=== PATIENT | female | born 1985 | race African-American/Black ===

== ENCOUNTER 2018-09-23 17:18 | Inpatient (IN) | payer SELFPAY ==
[~2018-09-23] VITALS: Ht 160 cm; Wt 68.5 kg
[2018-09-23] MEDS: D5 1/2NS 1,000 ML IV SCH (00:45)
[2018-09-23 17:35] VITALS: BP 122/84
--- NOTE | 2018-09-23 17:35 | NUR ---
ED Nurse Note: walked in to ED due to RUQ abdomen for 1 day. denies n/v/d. AAO x 4. respirations even and non-labored noted. no uriary problem. will wait for the further order.
--- NOTE | 2018-09-23 17:42 | Emergency Room Report ---
History of Present Illness General Chief Complaint: Abdominal Pain Source: Patient Present Illness HPI 33-year-old female history of appendectomy presents with right middle quadrant pain that started 1 day ago, reports it to be achy in nature, aggravated with movement alleviated with rest, no nausea no vomiting, no diarrhea, no vaginal discharge, patient denies any fever/chills, she states the pain has been constant with exacerbations. She denies any dysuria. Patient presents for evaluation Allergies: Coded Allergies: No Known Allergies (Unverified , 09/23/18) Patient History Past Medical History: see triage record Last Menstrual Period: today Now: No Reviewed Nursing Documentation: PMH: Agreed; PSxH: Agreed Nursing Documentation-PMH Past Medical History: No Stated History Review of Systems Constitutional: Denies: chills, fever Eye: Denies: blurred vision, double vision ENT: Denies: throat pain, nasal discharge Respiratory: Denies: cough, shortness of breath Cardiovascular: Denies: chest pain, palpitations Gastrointestinal: Reports: abdominal pain; Denies: diarrhea, nausea, vomiting Genitourinary: Denies: dysuria, pain Musculoskeletal: Denies: back pain, muscle pain Skin: Denies: rash, lesions Neurological: Denies: headache, focal weakness Hematologic/Lymphatic: Denies: easy bleeding, easy bruising All Other Systems: negative except mentioned in HPI Physical Exam Vital Signs Date Time Temp Pulse Resp B/P (MAP) Pulse Ox O2 Delivery O2 Flow Rate FiO2 09/23/18 17:22 98.1 81 18 122/84 (97) 98 Room Air Sp02 EP Interpretation: reviewed, normal General Appearance: well appearing, no apparent distress, alert Head: normocephalic, atraumatic Eyes: bilateral eye PERRL, bilateral eye EOMI ENT: uvula midline, moist mucus membranes Neck: supple, thyroid normal, supple/symm/no masses Respiratory: lungs clear, no respiratory distress, no retraction, no accessory muscle use Cardiovascular #1: normal peripheral pulses, regular rate, rhythm, no edema, no gallop, no murmur Gastrointestinal: soft, no guarding, no rebound, tenderness - Right middle quadrant, tender to palpation Musculoskeletal: normal inspection Neurologic: alert, oriented x3 Psychiatric: mood/affect normal Skin: no rash, warm/dry Medical Decision Making Diagnostic Impression: Primary Impression: Diverticulitis large intestine ER Course 33-year-old female presents with abdominal pain, differential includes SBO, stump appendicitis, diverticulitis, patient with normal labs, patient found to have a microperforation with complicated diverticulitis, patient will be admitted to Dr. Sanders. Patient repeat abdominal exam soft, nontender, patient is currently n.p.o. we will admit patient Laboratory Tests Test 09/23/18 17:30 09/23/18 17:50 Urine Color Yellow Urine Appearance Slightly cloudy Urine pH 5 (4.5-8.0) Urine Specific [place] 1.020 (1.005-1.035) Urine Protein Negative (NEGATIVE) Urine Glucose (UA) Negative (NEGATIVE) Urine Ketones Negative (NEGATIVE) Urine Blood 4+ (NEGATIVE) H Urine Nitrite Negative (NEGATIVE) Urine Bilirubin Negative (NEGATIVE) Urine Urobilinogen 1 MG/DL (0.0-1.0) H Urine Leukocyte Esterase 1+ (NEGATIVE) H Urine RBC 0-2 /HPF (0 - 2) Urine WBC 2-4 /HPF (0 - 2) Urine Squamous Epithelial Cells Moderate /LPF (NONE/OCC) H Urine Bacteria Moderate /HPF (NONE) H Urine HCG, Qualitative Negative (NEGATIVE) White Blood Count 10.7 K/UL (4.8-10.8) Red Blood Count 3.56 M/UL (4.20-5.40) L Hemoglobin 10.9 G/DL (12.0-16.0) L Hematocrit 32.4 % (37.0-47.0) L Mean Corpuscular Volume 91 FL (80-99) Mean Corpuscular Hemoglobin 30.6 PG (27.0-31.0) Mean Corpuscular Hemoglobin Concent 33.6 G/DL (32.0-36.0) Red Cell Distribution Width 10.5 % (11.6-14.8) L Platelet Count 300 K/UL (150-450) Mean Platelet Volume 5.3 FL (6.5-10.1) L Neutrophils (%) (Auto) 81.3 % (45.0-75.0) H Lymphocytes (%) (Auto) 9.0 % (20.0-45.0) L Monocytes (%) (Auto) 6.8 % (1.0-10.0) Eosinophils (%) (Auto) 2.5 % (0.0-3.0) Basophils (%) (Auto) 0.5 % (0.0-2.0) Sodium Level 142 MMOL/L (136-145) Potassium Level 3.1 MMOL/L (3.5-5.1) L Chloride Level 105 MMOL/L (98-107) Carbon Dioxide Level 27 MMOL/L (21-32) Anion Gap 10 mmol/L (5-15) Blood Urea Nitrogen 11 mg/dL (7-18) Creatinine 0.8 MG/DL (0.55-1.30) Estimate Glomerular Filtration Rate > 60 mL/min (>60) Glucose Level 115 MG/DL (74-106) H Calcium Level 8.8 MG/DL (8.5-10.1) Total Bilirubin 0.2 MG/DL (0.2-1.0) Aspartate Amino Transferase (AST) 11 U/L (15-37) L Alanine Aminotransferase (ALT) 11 U/L (12-78) L Alkaline Phosphatase 62 U/L (46-116) Total Protein 7.1 G/DL (6.4-8.2) Albumin 2.7 G/DL (3.4-5.0) L Globulin 4.4 g/dL Albumin/Globulin Ratio 0.6 (1.0-2.7) L Lipase 176 U/L (73-393) CT/MRI/US Diagnostic Results CT/MRI/US Diagnostic Results : Imaging Test Ordered: CT abdomen and Pelvis Impression CT ABDOMEN & PELVIS With Contrast: Inflammatory change surrounding the cecum is of indeterminate clinical significance and may be related to terminal ileitis, cecitis, diverticulitis, or stumpitis. The normal appendix is not identified. Tiny locule of gas anterior to the cecum (axial image 41) is nonspecific and may be extraluminal. Trace nonspecific pelvic free fluid. No free air or loculated fluid collection. Diastases of the rectus musculature. Small fat-containing periumbilical hernia. Spleen, pancreas, gallbladder, liver, and kidneys are unremarkable. Thickening of the underdistended urinary bladder. Last Vital Signs Date Time Temp Pulse Resp B/P (MAP) Pulse Ox O2 Delivery O2 Flow Rate FiO2 09/23/18 17:35 81 18 Room Air 09/23/18 17:35 98.1 122/84 98 Disposition: ADMITTED INPATIENT Condition: Stable Scripts No Active Prescriptions or Reported Meds Nigel Freedman M.D. Sep 23, 2018 17:42
[2018-09-23 17:45] LABS: APPEARANCE,URINE SLIGHTLY CLOUDY; BILIRUBIN, URINE NEGATIVE (NEGATIVE); GLUCOSE, URINE (UA) NEGATIVE (NEGATIVE); KETONES,URINE NEGATIVE (NEGATIVE); LEUKOCYTE ESTERASE ,URINE 1+ (NEGATIVE); NITRITE,URINE NEGATIVE (NEGATIVE); PH,URINE 5 (4.5-8.0); PROTEIN,URINE NEGATIVE (NEGATIVE); UROBILINOGEN,URINE 1 MG/DL (0.0-1.0)
[2018-09-23] MEDS ORDERED: Acetaminophen 500mg (ES) tab ORAL ONE (17:45)
[2018-09-23] MEDS ORDERED: Isovue-300 100ml vial INJ PRN (17:45)
[2018-09-23 17:47] LABS: COLOR,URINE YELLOW
[2018-09-23 18:02] LABS: BASOPHILS % (AUTO) 0.5 % (0.0-2.0); EOSINOPHILS % (AUTO) 2.5 % (0.0-3.0); HEMATOCRIT 32.4 % (37.0-47.0); HEMOGLOBIN 10.9 G/DL (12.0-16.0); MEAN CORPUSCULAR VOLUME 91 FL (80-99); MONOCYTES % (AUTO) 6.8 % (1.0-10.0); NEUTROPHILS % (AUTO) 81.3 % (45.0-75.0); PLATELET COUNT 300 K/UL (150-450); RED BLOOD COUNT 3.56 M/UL (4.20-5.40); RED CELL DISTRIBUTION WIDTH 10.5 % (11.6-14.8); WHITE BLOOD COUNT 10.7 K/UL (4.8-10.8)
[2018-09-23 18:15] LABS: ANION GAP 10 mmol/L (5-15); BLOOD UREA NITROGEN 11 mg/dL (7-18); CALCIUM 8.8 MG/DL (8.5-10.1); CARBON DIOXIDE 27 MMOL/L (21-32); CHLORIDE 105 MMOL/L (98-107); CREATININE 0.8 MG/DL (0.55-1.30); POTASSIUM 3.1 MMOL/L (3.5-5.1); SODIUM 142 MMOL/L (136-145)
[2018-09-23 18:20] LABS: ALANINE AMINOTRANSFERASE 11 U/L (12-78); ALBUMIN 2.7 G/DL (3.4-5.0); ALBUMIN/GLOBULIN RATIO 0.6 (1.0-2.7); ALKALINE PHOSPHATASE 62 U/L (46-116); ASPARTATE AMINO TRANSFERASE 11 U/L (15-37); BILIRUBIN,TOTAL 0.2 MG/DL (0.2-1.0)
[2018-09-23] MEDS ORDERED: cefTRIAXone 1 GM in NS 55 ML IVPB ONE (18:30)
--- NOTE | 2018-09-23 18:53 | NUR ---
ED Nurse Note: pt refused CT scan. Dr. Norman notified.
--- NOTE | 2018-09-23 19:12 | NUR ---
HAND-OFF: Report given to SONALI Nath.
--- NOTE | 2018-09-23 19:29 | NUR ---
ER Nurse Note: All meds administered. ERMD aware of pt refusal of CT; explained the procedure and reasons for CT and PT agreed for CT. Radiology contacted and aware. Pt a&ox4, VSS, no signs of distress. All safety measures met; will continue to montior.
[2018-09-23 19:31] VITALS: BP 126/82
--- NOTE | 2018-09-23 20:20 | NUR ---
ER Nurse Note: CT taken; awaiting results. Pt calm, cooperative. Pt has questions regarding insurance; registration informed about pt concerns and is aware. All safety measures met; will continue to monitor.
[2018-09-23] MEDS ORDERED: Piperacillin/Tazobactam 3.375 GM in NS 110 ML IVPB ONE (21:00)
[2018-09-23 22:50] VITALS: BP 128/78
--- NOTE | 2018-09-23 22:50 | NUR ---
ER Nurse Note: Report given to SONALI Otero in [place] for continutiy of care at 2225. No transportation aviliable. Pt a&ox4, VSS, no signs of distress. Pt denies pain. SLIV RT AC; patent. All belongings taken with pt. Pt left department 2250 with special systems technician.
--- NOTE | 2018-09-23 23:00 | NUR ---
Patient brought in by communications engineering technician. Ambulating well, without difficulty or dizziness. States pain is slight, 1/10 in abdominal RUQ, towards middle. VSS. Alert and oriented x4. Patient has been here vacationing for the last 3 months, she came from [place]. Bed in low position, locked, side rails up x2, call light within reach. IV site RAC intact and patent. Will continue to monitor.
[2018-09-23 23:15] VITALS: BP 127/76
[2018-09-23] MEDS ORDERED: Morphine Sulfate 2mg/ml Inj(IV/IM USE ONLY) IVP PRN (23:45)
[2018-09-23] MEDS ORDERED: Miralax 17gm pkt ORAL PRN (23:45)
[2018-09-23] MEDS ORDERED: Nitroglycerin Subl 0.4mg tab SL PRN (23:45)
--- NOTE | 2018-09-23 23:45 | NUR ---
NURSE NOTES: Advised of status NPO except for ice chips/meds per MD order. Patient verbalizes understanding.
[2018-09-24] VITALS: BP 130/74
[2018-09-24 04:00] VITALS: BP 106/56
[2018-09-24 06:26] LABS: BASOPHILS % (AUTO) 0.6 % (0.0-2.0); EOSINOPHILS % (AUTO) 4.1 % (0.0-3.0); HEMATOCRIT 30.1 % (37.0-47.0); HEMOGLOBIN 9.7 G/DL (12.0-16.0); LYMPHOCYTES % (AUTO) 11.1 % (20.0-45.0); MEAN CORPUSCULAR VOLUME 94 FL (80-99); MONOCYTES % (AUTO) 8.9 % (1.0-10.0); NEUTROPHILS % (AUTO) 75.4 % (45.0-75.0); PLATELET COUNT 243 K/UL (150-450); RED CELL DISTRIBUTION WIDTH 11.3 % (11.6-14.8); WHITE BLOOD COUNT 6.1 K/UL (4.8-10.8)
[2018-09-24 07:00] LABS: ALANINE AMINOTRANSFERASE 8 U/L (12-78); ALBUMIN 2.2 G/DL (3.4-5.0); ALBUMIN/GLOBULIN RATIO 0.6 (1.0-2.7); ALKALINE PHOSPHATASE 52 U/L (46-116); AMYLASE 93 U/L (25-115); ANION GAP 7 mmol/L (5-15); ASPARTATE AMINO TRANSFERASE 9 U/L (15-37); BILIRUBIN,TOTAL 0.3 MG/DL (0.2-1.0); BLOOD UREA NITROGEN 7 mg/dL (7-18); CALCIUM 8.6 MG/DL (8.5-10.1); CARBON DIOXIDE 26 MMOL/L (21-32); CHLORIDE 111 MMOL/L (98-107); CREATININE 0.7 MG/DL (0.55-1.30); POTASSIUM 3.7 MMOL/L (3.5-5.1); SODIUM 144 MMOL/L (136-145)
--- NOTE | 2018-09-24 07:30 | NUR ---
HAND-OFF: Report given to SONALI Avitia. Request for social service consult placed.
--- NOTE | 2018-09-24 07:36 | NUR ---
NURSE NOTES: Patient alert x4, on room air, no sign of distress and shortness of breath; no sign of chest pain; IV RAC 18G D5NS running @75cc; patient is NPO, sing on the door and patient is aware; call light within reach; will keep monitoring.
[2018-09-24 08:00] VITALS: BP 94/60
--- NOTE | 2018-09-24 08:09 | NUR ---
NURSE NOTES: Spoke with social insurance specialist, explained situation, advised to call [phone] and leave message to follow up with patient regarding financial concerns. Call placed, left message, reported to day shift nurse. Will cancel social service consult
--- NOTE | 2018-09-24 08:34 | Diagnostic Imaging Report ---
Clinical Indication: Abdominal pain, right central abdominal pain for one day Technique: No oral contrast utilized, per emergency room physician request IV administration nonionic contrast. Venous phase spiral acquisition obtained through the abdomen and pelvis. Multiplanar reconstructions were generated. Total dose length product 729 mGycm. CTDIvol(s) 14 mGy. Dose reduction achieved using automated exposure control Comparison: none Findings: There is marked wall thickening of the cecum and a short portion of the ascending colon as well as infiltration of the surrounding fat. There is also wall thickening of the terminal ileum. There is a small gas collection anterior to the cecum which could be extraluminal. This is surrounded by high attenuation material. Appendix is not visualized, reportedly surgically absent. There is trace fluid in the pelvis There is no evidence of diverticulosis or diverticulitis. No small bowel distention. There is a small umbilical hernia which contains only fat. The distal esophagus, stomach, duodenum are unremarkable. No free or loculated intraperitoneal fluid demonstrated. The liver, gallbladder, bile ducts, pancreas, spleen, adrenals, kidneys are unremarkable. No retroperitoneal or mesenteric mass or adenopathy. No pelvic mass or adenopathy. The uterus is retroverted. There are left paraovarian varicosities noted. The included lung bases are clear. The bones are unremarkable. Impression: Marked wall thickening of the cecum and terminal ileum, with infiltration of the surrounding fat. There is a tiny focus of gas anterior to the cecum which could be extraluminal and indicate microperforation. Findings are consistent with CT-guided/enteritis, nonspecific as regards etiology. Findings could represent diverticulitis, although this is unlikely given the apparent absence of diverticula Trace free pelvic fluid, may be physiologic or may be related to the above Left paraovarian varicosities, could indicate ovarian venous insufficiency. Correlate with any clinical history of possible congestion syndrome This agrees with the preliminary interpretation provided overnight by [employer] teleradiology service. The CT scanner at [facility] is accredited by the [employer] and the scans are performed using protocols designed to limit radiation exposure to as low as reasonably achievable to attain images of sufficient resolution adequate for diagnostic evaluation.
[2018-09-24] MEDS ORDERED: Pantoprazole Inj IVP SCH (09:00)
[2018-09-24] MEDS ORDERED: Heparin 5000 units/ml inj SUBQ SCH (09:00)
--- NOTE | 2018-09-24 11:46 | GI Initial Consult Note ---
History of Present Illness General Date patient seen: Sep 24, 2018 Time patient seen: 11:40 Reason for Hospitalization: Abdominal Pain Referring physician: BAYLEE Reason for Consultation: DIVERTICULITIS Present Illness HPI 33-year-old female history of appendectomy presents with right middle quadrant pain that started 1 day ago, reports it to be achy in nature, aggravated with movement alleviated with rest, no nausea no vomiting, no diarrhea, no vaginal discharge, patient denies any fever/chills, she states the pain has been constant with exacerbations. She denies any dysuria. Patient presents for evaluation GI consulted for reported diverticulitis. Patient seen, awake alert and oriented x4. Patient reported abdominal pain, which has resolved at this time. The patient reported bowel movement this morning. Abdomen is soft, nondistended, nontender in all quadrants. Abdominal pelvis CT reviewed showed possible diverticulitis, however was more suggestive of enteritis. The patient denied any recent travels, denied any changes in dietary habits. The patient has no history of endoscopic or colonoscopy. Home Meds No Active Prescriptions or Reported Meds Med list reviewed/reconciled: Yes Allergies: Coded Allergies: No Known Allergies (Unverified , 09/23/18) Patient History History Provided By: Patient, Medical Record PMH Narrative Past Medical History: see triage record Last Menstrual Period: today Now: No Reviewed Nursing Documentation: PMH: Agreed; PSxH: Agreed Nursing Documentation-PM Past Medical History: No Stated History Social History: Denies: smoking, alcohol use, drug use, other Review of Systems All Other Systems: negative except mentioned in HPI Physical Exam Vital Signs Date Time Temp Pulse Resp B/P (MAP) Pulse Ox O2 Delivery O2 Flow Rate FiO2 09/23/18 17:22 98.1 81 18 122/84 (97) 98 Room Air Sp02 EP Interpretation: reviewed, normal Labs Laboratory Tests Test 09/23/18 17:30 09/23/18 17:50 09/24/18 05:41 Urine Color Yellow Urine Appearance Slightly cloudy Urine pH 5 (4.5-8.0) Urine Specific [place] 1.020 (1.005-1.035) Urine Protein Negative (NEGATIVE) Urine Glucose (UA) Negative (NEGATIVE) Urine Ketones Negative (NEGATIVE) Urine Blood 4+ (NEGATIVE) H Urine Nitrite Negative (NEGATIVE) Urine Bilirubin Negative (NEGATIVE) Urine Urobilinogen 1 MG/DL (0.0-1.0) H Urine Leukocyte Esterase 1+ (NEGATIVE) H Urine RBC 0-2 /HPF (0 - 2) Urine WBC 2-4 /HPF (0 - 2) Urine Squamous Epithelial Cells Moderate /LPF (NONE/OCC) H Urine Bacteria Moderate /HPF (NONE) H Urine HCG, Qualitative Negative (NEGATIVE) White Blood Count 10.7 K/UL (4.8-10.8) 6.1 K/UL (4.8-10.8) Red Blood Count 3.56 M/UL (4.20-5.40) L 3.20 M/UL (4.20-5.40) L Hemoglobin 10.9 G/DL (12.0-16.0) L 9.7 G/DL (12.0-16.0) L Hematocrit 32.4 % (37.0-47.0) L 30.1 % (37.0-47.0) L Mean Corpuscular Volume 91 FL (80-99) 94 FL (80-99) Mean Corpuscular Hemoglobin 30.6 PG (27.0-31.0) 30.4 PG (27.0-31.0) Mean Corpuscular Hemoglobin Concent 33.6 G/DL (32.0-36.0) 32.3 G/DL (32.0-36.0) Red Cell Distribution Width 10.5 % (11.6-14.8) L 11.3 % (11.6-14.8) L Platelet Count 300 K/UL (150-450) 243 K/UL (150-450) Mean Platelet Volume 5.3 FL (6.5-10.1) L 5.3 FL (6.5-10.1) L Neutrophils (%) (Auto) 81.3 % (45.0-75.0) H 75.4 % (45.0-75.0) H Lymphocytes (%) (Auto) 9.0 % (20.0-45.0) L 11.1 % (20.0-45.0) L Monocytes (%) (Auto) 6.8 % (1.0-10.0) 8.9 % (1.0-10.0) Eosinophils (%) (Auto) 2.5 % (0.0-3.0) 4.1 % (0.0-3.0) H Basophils (%) (Auto) 0.5 % (0.0-2.0) 0.6 % (0.0-2.0) Sodium Level 142 MMOL/L (136-145) 144 MMOL/L (136-145) Potassium Level 3.1 MMOL/L (3.5-5.1) L 3.7 MMOL/L (3.5-5.1) Chloride Level 105 MMOL/L (98-107) 111 MMOL/L (98-107) H Carbon Dioxide Level 27 MMOL/L (21-32) 26 MMOL/L (21-32) Anion Gap 10 mmol/L (5-15) 7 mmol/L (5-15) Blood Urea Nitrogen 11 mg/dL (7-18) 7 mg/dL (7-18) Creatinine 0.8 MG/DL (0.55-1.30) 0.7 MG/DL (0.55-1.30) Estimat Glomerular Filtration Rate > 60 mL/min (>60) > 60 mL/min (>60) Glucose Level 115 MG/DL (74-106) H 107 MG/DL (74-106) H Calcium Level 8.8 MG/DL (8.5-10.1) 8.6 MG/DL (8.5-10.1) Total Bilirubin 0.2 MG/DL (0.2-1.0) 0.3 MG/DL (0.2-1.0) Aspartate Amino Transf (AST/SGOT) 11 U/L (15-37) L 9 U/L (15-37) L Alanine Aminotransferase (ALT/SGPT) 11 U/L (12-78) L 8 U/L (12-78) L Alkaline Phosphatase 62 U/L (46-116) 52 U/L (46-116) Total Protein 7.1 G/DL (6.4-8.2) 6.1 G/DL (6.4-8.2) L Albumin 2.7 G/DL (3.4-5.0) L 2.2 G/DL (3.4-5.0) L Globulin 4.4 g/dL 3.9 g/dL Albumin/Globulin Ratio 0.6 (1.0-2.7) L 0.6 (1.0-2.7) L Lipase 176 U/L (73-393) 142 U/L (73-393) Activated Partial Thromboplast Time 31 SEC (23-33) Amylase Level 93 U/L (25-115) General Appearance: well appearing, no apparent distress, alert Head: normocephalic EENT: PERRL/EOMI, normal ENT inspection Neck: supple Respiratory: normal breath sounds, no respiratory distress Cardiovascular: normal rate Gastrointestinal: normal inspection, non tender, soft, normal bowel sounds, non -distended Rectal: deferred Genitourinary: no CVA tenderness Musculoskeletal: normal inspection, back normal Neurologic: normal inspection, alert, oriented x3, responsive Psychiatric: normal inspection, judgement/insight normal, memory normal Skin: normal inspection, normal color, no rash, warm/dry, palpation normal, well hydrated Lymphatic: normal inspection, no adenopathy Current Medications Current Medications Medications (Trade) Dose Ordered Sig/Shiela Route PRN Reason Start Time Stop Time Status Last Admin Dose Admin Acetaminophen (Tylenol) 650 mg Q4H PRN ORAL fever 09/23/18 23:45 10/23/18 23:44 Dextrose (Dextrose 50%) 25 ml Q30M PRN IV Hypoglycemia 09/23/18 23:45 10/23/18 23:44 Dextrose (Dextrose 50%) 50 ml Q30M PRN IV Hypoglycemia 09/23/18 23:45 10/23/18 23:44 Dextrose/Sodium Chloride 1,000 ml @ 75 mls/hr [id number] IV 09/23/18 23:31 10/23/18 23:30 09/23/18 00:45 Diphenhydramine HCl (Benadryl) 25 mg Q6H PRN ORAL Itching/Pruritis 09/23/18 23:45 10/23/18 23:44 Heparin Sodium (Porcine) (Heparin 5000 units/ml) 5,000 units EVERY 12 HOURS SUBQ 09/24/18 09:00 10/24/18 08:59 09/24/18 08:18 Iopamidol (Isovue-300 100ml) 100 ml NOW PRN INJ Radiology Procedure 09/23/18 17:45 Morphine Sulfate (Morphine Sulfate) 2 mg Q4H PRN IVP severe Pain (Pain Scale 7-10) 09/23/18 23:45 09/30/18 23:44 Nitroglycerin (Ntg) 0.4 mg Q5M X 3 DOSES PRN SL Prn Chest Pain 09/23/18 23:45 10/23/18 23:44 Ondansetron HCl (Zofran) 4 mg Q6H PRN IVP Nausea & Vomiting 09/23/18 23:45 10/23/18 23:44 Pantoprazole (Protonix) 40 mg DAILY IVP 09/24/18 09:00 10/24/18 08:59 09/24/18 08:16 Polyethylene Glycol (Miralax) 17 gm HSPRN PRN ORAL Constipation 09/23/18 23:45 10/23/18 23:44 Temazepam (Restoril) 15 mg HSPRN PRN ORAL Insomnia 09/23/18 23:45 09/30/18 23:44 GI: Plan Problems: (1) Enteritis (2) Abdominal pain Plan Unlikely diverticulitis, more suggestive of enteritis based on CT scan Symptomatic treatment at this time Okay to advance to regular diet Pain management Zofran as needed IV and p.o. hydration Okay to DC per GI standpoint if patient could tolerate diet Discussed with Dr. Pollock. Thank you for this patient referral, we will follow. The patient was seen and examined at bedside and all new and available data was reviewed in the patients chart. I agree with the above findings, impression and plan. (Patient seen earlier today. Signature stamp does not reflect patient encounter time.). - MD Federica Boone Anh-Walker DIRECTOR [employer] Sep 24, 2018 11:46
[2018-09-24 12:00] VITALS: BP 109/73
--- NOTE | 2018-09-24 12:33 | NUR ---
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
--- NOTE | 2018-09-24 12:42 | Consultation ---
History of Present Illness General Date patient seen: Sep 24, 2018 Chief Complaint: Abdominal Pain Referring physician: BAYLEE Reason for Consultation: DIVERTICULITIS Present Illness HPI 33-year-old female history of appendectomy presents with right middle quadrant pain that started 1 day ago, reports it to be achy in nature, aggravated with movement alleviated with rest, no nausea no vomiting, no diarrhea, no vaginal discharge, patient denies any fever/chills, she states the pain has been constant with exacerbations. She denies any dysuria. Allergies: Coded Allergies: No Known Allergies (Unverified , 09/23/18) Medication History No Active Prescriptions or Reported Meds Patient History Healthcare decision maker Resuscitation status Full Code Advanced Directive on File No Review of Systems All Other Systems: negative except mentioned in HPI Physical Exam General Appearance: WD/WN, alert Lines, tubes and drains: peripheral HEENT: normocephalic, atraumatic Neck: non-tender, normal alignment, supple Respiratory/Chest: chest wall non-tender, lungs clear Breasts: no masses Cardiovascular/Chest: normal rate, regular rhythm Genitourinary/Rectal: normal rectal exam Extremities: normal range of motion Last 24 Hour Vital Signs Date Time Temp Pulse Resp B/P (MAP) Pulse Ox O2 Delivery O2 Flow Rate FiO2 09/24/18 12:00 98.8 68 18 109/73 (85) 100 09/24/18 09:00 Room Air 09/24/18 08:00 98.4 73 18 94/60 (71) 98 09/24/18 04:00 97.9 69 18 106/56 (73) 98 09/24/18 00:12 Room Air 09/24/18 00:00 97.8 70 18 130/74 (92) 98 09/23/18 23:15 97.9 76 18 127/76 (93) 99 09/23/18 23:15 Room Air 09/23/18 22:50 97.9 78 16 128/78 98 Room Air 09/23/18 22:50 97.9 78 16 128/78 98 Room Air 09/23/18 19:31 98.3 86 18 126/82 97 Room Air 09/23/18 17:35 81 18 Room Air 09/23/18 17:35 98.1 81 18 122/84 98 Room Air 09/23/18 17:22 98.1 81 18 122/84 (97) 98 Room Air Intake and Output 09/23/18 09/24/18 19:00 07:00 Intake Total 1240 ml Balance 1240 ml Intake IV Total 1240 ml # Voids 1 Laboratory Tests Test 09/23/18 17:30 09/23/18 17:50 09/24/18 05:41 Urine Color Yellow Urine Appearance Slightly cloudy Urine pH 5 (4.5-8.0) Urine Specific [place] 1.020 (1.005-1.035) Urine Protein Negative (NEGATIVE) Urine Glucose (UA) Negative (NEGATIVE) Urine Ketones Negative (NEGATIVE) Urine Blood 4+ (NEGATIVE) H Urine Nitrite Negative (NEGATIVE) Urine Bilirubin Negative (NEGATIVE) Urine Urobilinogen 1 MG/DL (0.0-1.0) H Urine Leukocyte Esterase 1+ (NEGATIVE) H Urine RBC 0-2 /HPF (0 - 2) Urine WBC 2-4 /HPF (0 - 2) Urine Squamous Epithelial Cells Moderate /LPF (NONE/OCC) H Urine Bacteria Moderate /HPF (NONE) H Urine HCG, Qualitative Negative (NEGATIVE) White Blood Count 10.7 K/UL (4.8-10.8) 6.1 K/UL (4.8-10.8) Red Blood Count 3.56 M/UL (4.20-5.40) L 3.20 M/UL (4.20-5.40) L Hemoglobin 10.9 G/DL (12.0-16.0) L 9.7 G/DL (12.0-16.0) L Hematocrit 32.4 % (37.0-47.0) L 30.1 % (37.0-47.0) L Mean Corpuscular Volume 91 FL (80-99) 94 FL (80-99) Mean Corpuscular Hemoglobin 30.6 PG (27.0-31.0) 30.4 PG (27.0-31.0) Mean Corpuscular Hemoglobin Concent 33.6 G/DL (32.0-36.0) 32.3 G/DL (32.0-36.0) Red Cell Distribution Width 10.5 % (11.6-14.8) L 11.3 % (11.6-14.8) L Platelet Count 300 K/UL (150-450) 243 K/UL (150-450) Mean Platelet Volume 5.3 FL (6.5-10.1) L 5.3 FL (6.5-10.1) L Neutrophils (%) (Auto) 81.3 % (45.0-75.0) H 75.4 % (45.0-75.0) H Lymphocytes (%) (Auto) 9.0 % (20.0-45.0) L 11.1 % (20.0-45.0) L Monocytes (%) (Auto) 6.8 % (1.0-10.0) 8.9 % (1.0-10.0) Eosinophils (%) (Auto) 2.5 % (0.0-3.0) 4.1 % (0.0-3.0) H Basophils (%) (Auto) 0.5 % (0.0-2.0) 0.6 % (0.0-2.0) Sodium Level 142 MMOL/L (136-145) 144 MMOL/L (136-145) Potassium Level 3.1 MMOL/L (3.5-5.1) L 3.7 MMOL/L (3.5-5.1) Chloride Level 105 MMOL/L (98-107) 111 MMOL/L (98-107) H Carbon Dioxide Level 27 MMOL/L (21-32) 26 MMOL/L (21-32) Anion Gap 10 mmol/L (5-15) 7 mmol/L (5-15) Blood Urea Nitrogen 11 mg/dL (7-18) 7 mg/dL (7-18) Creatinine 0.8 MG/DL (0.55-1.30) 0.7 MG/DL (0.55-1.30) Estimat Glomerular Filtration Rate > 60 mL/min (>60) > 60 mL/min (>60) Glucose Level 115 MG/DL (74-106) H 107 MG/DL (74-106) H Calcium Level 8.8 MG/DL (8.5-10.1) 8.6 MG/DL (8.5-10.1) Total Bilirubin 0.2 MG/DL (0.2-1.0) 0.3 MG/DL (0.2-1.0) Aspartate Amino Transf (AST/SGOT) 11 U/L (15-37) L 9 U/L (15-37) L Alanine Aminotransferase (ALT/SGPT) 11 U/L (12-78) L 8 U/L (12-78) L Alkaline Phosphatase 62 U/L (46-116) 52 U/L (46-116) Total Protein 7.1 G/DL (6.4-8.2) 6.1 G/DL (6.4-8.2) L Albumin 2.7 G/DL (3.4-5.0) L 2.2 G/DL (3.4-5.0) L Globulin 4.4 g/dL 3.9 g/dL Albumin/Globulin Ratio 0.6 (1.0-2.7) L 0.6 (1.0-2.7) L Lipase 176 U/L (73-393) 142 U/L (73-393) Activated Partial Thromboplast Time 31 SEC (23-33) Amylase Level 93 U/L (25-115) Microbiology Date/Time Source Procedure Growth Status 09/23/18 17:30 Urine,Clean Catch Urine Culture - Preliminary NO GROWTH Resulted Height (Feet): 5 Height (Inches): 3.00 Weight (Pounds): 151 Medications Current Medications Medications (Trade) Dose Ordered Sig/Shiela Route PRN Reason Start Time Stop Time Status Last Admin Dose Admin Acetaminophen (Tylenol) 650 mg Q4H PRN ORAL fever 09/23/18 23:45 10/23/18 23:44 Dextrose (Dextrose 50%) 25 ml Q30M PRN IV Hypoglycemia 09/23/18 23:45 10/23/18 23:44 Dextrose (Dextrose 50%) 50 ml Q30M PRN IV Hypoglycemia 09/23/18 23:45 10/23/18 23:44 Dextrose/Sodium Chloride 1,000 ml @ 75 mls/hr [id number] IV 09/23/18 23:31 10/23/18 23:30 09/23/18 00:45 Diphenhydramine HCl (Benadryl) 25 mg Q6H PRN ORAL Itching/Pruritis 09/23/18 23:45 10/23/18 23:44 Heparin Sodium (Porcine) (Heparin 5000 units/ml) 5,000 units EVERY 12 HOURS SUBQ 09/24/18 09:00 8/18/19 08:59 09/24/18 08:18 Iopamidol (Isovue-300 100ml) 100 ml NOW PRN INJ Radiology Procedure 09/23/18 17:45 Morphine Sulfate (Morphine Sulfate) 2 mg Q4H PRN IVP severe Pain (Pain Scale 7-10) 09/23/18 23:45 09/30/18 23:44 Nitroglycerin (Ntg) 0.4 mg Q5M X 3 DOSES PRN SL Prn Chest Pain 09/23/18 23:45 10/23/18 23:44 Ondansetron HCl (Zofran) 4 mg Q6H PRN IVP Nausea & Vomiting 09/23/18 23:45 10/23/18 23:44 Pantoprazole (Protonix) 40 mg DAILY IVP 09/24/18 09:00 10/24/18 08:59 09/24/18 08:16 Polyethylene Glycol (Miralax) 17 gm HSPRN PRN ORAL Constipation 09/23/18 23:45 10/23/18 23:44 Temazepam (Restoril) 15 mg HSPRN PRN ORAL Insomnia 09/23/18 23:45 09/30/18 23:44 Assessment/Plan Problem List: (1) Enteritis ICD Codes: K52.9 - Noninfective gastroenteritis and colitis, unspecified SNOMED: 84632791 (2) Abdominal pain ICD Codes: R10.9 - Unspecified abdominal pain SNOMED: 81152302 Assessment/Plan: symptomatic treatment iv fluids ID and GI evaluation. Jennifer Salinas MD Sep 24, 2018 12:42
[2018-09-24] MEDS: D5 1/2NS 1,000 ML IV SCH (13:18)
--- NOTE | 2018-09-24 13:31 | NUR ---
NURSE NOTES: There is active Discharge for this patient, I communicated MD Powers, if MD solo order medication. Waiting for order.
--- NOTE | 2018-09-24 13:41 | Consultation ---
History of Present Illness General Date patient seen: Sep 24, 2018 Chief Complaint: Abdominal Pain Referring physician: BAYLEE Reason for Consultation: DIVERTICULITIS Present Illness HPI 33 y/o F iwth hx of appendectomy presnted to ED on 09/23 with 1 day of Right middle quadrant pain; achy in nature, alleviated with rest, constant. CT abd/p showed possible diverticulitis. PEr GI, CT is more suggestive of entereitis. Denied n/v/d, vaginal discharge, f/c, dysuria, recent travel. Patient is originally from [place] and has been in [place] for the last 4months. Allergies: Coded Allergies: No Known Allergies (Unverified , 09/23/18) Medication History No Active Prescriptions or Reported Meds Patient History Healthcare decision maker Resuscitation status Full Code Advanced Directive on File No Patient History Narrative Pmhx: as above Shx: Denies: smoking, alcohol use, drug use, other Fhx: non contributory Review of Systems All Other Systems: negative except mentioned in HPI Physical Exam Physical Exam Narrative General Appearance: WD/WN, alert Lines, tubes and drains: peripheral HEENT: normocephalic, atraumatic Neck: non-tender, normal alignment, supple Respiratory/Chest: chest wall non-tender, lungs clear Cardiovascular/Chest: normal rate, regular rhythm Extremities: normal range of motion Last 24 Hour Vital Signs Date Time Temp Pulse Resp B/P (MAP) Pulse Ox O2 Delivery O2 Flow Rate FiO2 09/24/18 12:00 98.8 68 18 109/73 (85) 100 09/24/18 09:00 Room Air 09/24/18 08:00 98.4 73 18 94/60 (71) 98 09/24/18 04:00 97.9 69 18 106/56 (73) 98 09/24/18 00:12 Room Air 09/24/18 00:00 97.8 70 18 130/74 (92) 98 09/23/18 23:15 97.9 76 18 127/76 (93) 99 09/23/18 23:15 Room Air 09/23/18 22:50 97.9 78 16 128/78 98 Room Air 09/23/18 22:50 97.9 78 16 128/78 98 Room Air 09/23/18 19:31 98.3 86 18 126/82 97 Room Air 09/23/18 17:35 81 18 Room Air 09/23/18 17:35 98.1 81 18 122/84 98 Room Air 09/23/18 17:22 98.1 81 18 122/84 (97) 98 Room Air Intake and Output 09/23/18 09/24/18 19:00 07:00 Intake Total 1240 ml Balance 1240 ml Intake IV Total 1240 ml # Voids 1 Laboratory Tests Test 09/23/18 17:30 09/23/18 17:50 09/24/18 05:41 Urine Color Yellow Urine Appearance Slightly cloudy Urine pH 5 (4.5-8.0) Urine Specific [place] 1.020 (1.005-1.035) Urine Protein Negative (NEGATIVE) Urine Glucose (UA) Negative (NEGATIVE) Urine Ketones Negative (NEGATIVE) Urine Blood 4+ (NEGATIVE) H Urine Nitrite Negative (NEGATIVE) Urine Bilirubin Negative (NEGATIVE) Urine Urobilinogen 1 MG/DL (0.0-1.0) H Urine Leukocyte Esterase 1+ (NEGATIVE) H Urine RBC 0-2 /HPF (0 - 2) Urine WBC 2-4 /HPF (0 - 2) Urine Squamous Epithelial Cells Moderate /LPF (NONE/OCC) H Urine Bacteria Moderate /HPF (NONE) H Urine HCG, Qualitative Negative (NEGATIVE) White Blood Count 10.7 K/UL (4.8-10.8) 6.1 K/UL (4.8-10.8) Red Blood Count 3.56 M/UL (4.20-5.40) L 3.20 M/UL (4.20-5.40) L Hemoglobin 10.9 G/DL (12.0-16.0) L 9.7 G/DL (12.0-16.0) L Hematocrit 32.4 % (37.0-47.0) L 30.1 % (37.0-47.0) L Mean Corpuscular Volume 91 FL (80-99) 94 FL (80-99) Mean Corpuscular Hemoglobin 30.6 PG (27.0-31.0) 30.4 PG (27.0-31.0) Mean Corpuscular Hemoglobin Concent 33.6 G/DL (32.0-36.0) 32.3 G/DL (32.0-36.0) Red Cell Distribution Width 10.5 % (11.6-14.8) L 11.3 % (11.6-14.8) L Platelet Count 300 K/UL (150-450) 243 K/UL (150-450) Mean Platelet Volume 5.3 FL (6.5-10.1) L 5.3 FL (6.5-10.1) L Neutrophils (%) (Auto) 81.3 % (45.0-75.0) H 75.4 % (45.0-75.0) H Lymphocytes (%) (Auto) 9.0 % (20.0-45.0) L 11.1 % (20.0-45.0) L Monocytes (%) (Auto) 6.8 % (1.0-10.0) 8.9 % (1.0-10.0) Eosinophils (%) (Auto) 2.5 % (0.0-3.0) 4.1 % (0.0-3.0) H Basophils (%) (Auto) 0.5 % (0.0-2.0) 0.6 % (0.0-2.0) Sodium Level 142 MMOL/L (136-145) 144 MMOL/L (136-145) Potassium Level 3.1 MMOL/L (3.5-5.1) L 3.7 MMOL/L (3.5-5.1) Chloride Level 105 MMOL/L (98-107) 111 MMOL/L (98-107) H Carbon Dioxide Level 27 MMOL/L (21-32) 26 MMOL/L (21-32) Anion Gap 10 mmol/L (5-15) 7 mmol/L (5-15) Blood Urea Nitrogen 11 mg/dL (7-18) 7 mg/dL (7-18) Creatinine 0.8 MG/DL (0.55-1.30) 0.7 MG/DL (0.55-1.30) Estimat Glomerular Filtration Rate > 60 mL/min (>60) > 60 mL/min (>60) Glucose Level 115 MG/DL (74-106) H 107 MG/DL (74-106) H Calcium Level 8.8 MG/DL (8.5-10.1) 8.6 MG/DL (8.5-10.1) Total Bilirubin 0.2 MG/DL (0.2-1.0) 0.3 MG/DL (0.2-1.0) Aspartate Amino Transf (AST/SGOT) 11 U/L (15-37) L 9 U/L (15-37) L Alanine Aminotransferase (ALT/SGPT) 11 U/L (12-78) L 8 U/L (12-78) L Alkaline Phosphatase 62 U/L (46-116) 52 U/L (46-116) Total Protein 7.1 G/DL (6.4-8.2) 6.1 G/DL (6.4-8.2) L Albumin 2.7 G/DL (3.4-5.0) L 2.2 G/DL (3.4-5.0) L Globulin 4.4 g/dL 3.9 g/dL Albumin/Globulin Ratio 0.6 (1.0-2.7) L 0.6 (1.0-2.7) L Lipase 176 U/L (73-393) 142 U/L (73-393) Activated Partial Thromboplast Time 31 SEC (23-33) Amylase Level 93 U/L (25-115) Microbiology Date/Time Source Procedure Growth Status 09/23/18 17:30 Urine,Clean Catch Urine Culture - Preliminary NO GROWTH Resulted Height (Feet): 5 Height (Inches): 3.00 Weight (Pounds): 151 Medications Current Medications Medications (Trade) Dose Ordered Sig/Shiela Route PRN Reason Start Time Stop Time Status Last Admin Dose Admin Acetaminophen (Tylenol) 650 mg Q4H PRN ORAL fever 09/23/18 23:45 10/23/18 23:44 Dextrose (Dextrose 50%) 25 ml Q30M PRN IV Hypoglycemia 09/23/18 23:45 10/23/18 23:44 Dextrose (Dextrose 50%) 50 ml Q30M PRN IV Hypoglycemia 09/23/18 23:45 10/23/18 23:44 Dextrose/Sodium Chloride 1,000 ml @ 75 mls/hr [id number] IV 09/23/18 23:31 10/23/18 23:30 09/24/18 13:18 Diphenhydramine HCl (Benadryl) 25 mg Q6H PRN ORAL Itching/Pruritis 09/23/18 23:45 10/23/18 23:44 Heparin Sodium (Porcine) (Heparin 5000 units/ml) 5,000 units EVERY 12 HOURS SUBQ 09/24/18 09:00 10/24/18 08:59 09/24/18 08:18 Iopamidol (Isovue-300 100ml) 100 ml NOW PRN INJ Radiology Procedure 09/23/18 17:45 Morphine Sulfate (Morphine Sulfate) 2 mg Q4H PRN IVP severe Pain (Pain Scale 7-10) 09/23/18 23:45 09/30/18 23:44 Nitroglycerin (Ntg) 0.4 mg Q5M X 3 DOSES PRN SL Prn Chest Pain 09/23/18 23:45 10/23/18 23:44 Ondansetron HCl (Zofran) 4 mg Q6H PRN IVP Nausea & Vomiting 09/23/18 23:45 10/23/18 23:44 Pantoprazole (Protonix) 40 mg DAILY IVP 09/24/18 09:00 10/24/18 08:59 09/24/18 08:16 Polyethylene Glycol (Miralax) 17 gm HSPRN PRN ORAL Constipation 09/23/18 23:45 10/23/18 23:44 Temazepam (Restoril) 15 mg HSPRN PRN ORAL Insomnia 09/23/18 23:45 09/30/18 23:44 Assessment/Plan Assessment/Plan: Abx: Ceftriaxone x1 09/23 Zosyn x1 09/23 Assessment: Abd pain- Enteritis- ?microperforation -CT abd/p: Marked wall thickening of the cecum and terminal ileum, with infiltration of the surrounding fat. There is a tiny focus of gas anterior to the cecum which could be extraluminal and indicate microperforation. Findings are consistent with CT-guided/enteritis, nonspecific as regards etiology. Findings could represent diverticulitis, although this is unlikely given the apparent absence of diverticula. Trace free pelvic fluid, may be physiologic or may be related to the above. Left paraovarian varicosities, could indicate ovarian venous insufficiency. Correlate with any clinical history of possible congestion syndrome -u/a no pyuria; ucx NTD Afebrile No leukocytosis appendectomy Plan: -Start PO Ciprofloxacin and Flagyl #03/15 -ok to discharge on this regimen -strict return precautions -f/u cx -Monitor CBC/CMP, temperatures Thank you for this consultation. Will continue to follow along with you. Discussed with RN and Dr Salinas. Ghazala Sevilla M.D. Sep 24, 2018 13:41
[2018-09-24] MEDS ORDERED: D5 1/2NS 1000ml IV ONE (15:05)
[2018-09-24 16:00] VITALS: BP 105/67
--- NOTE | 2018-09-24 18:29 | NUR ---
NURSE NOTES: Patient left the floor ambulating around 1800. IV access and name tag removed. Printed materials regarding this visit and when to seek for help. Original medication prescription given to patient. Belonging list crossed matched and singed by patient and primary nurse. Patient was stable upon discharge.
--- NOTE | 2018-09-24 19:45 | History and Physical Report ---
DATE OF ADMISSION: 09/23/2018 CHIEF COMPLAINT: The patient is a 33-year-old female, presents with chief complaint of abdominal pain. HISTORY OF PRESENT ILLNESS: The patient has a history of appendectomy in the past. The patient presented to [place] emergency room complaining of a one-day history of right-sided abdominal pain. The patient was admitted with right-sided abdominal pain to rule out diverticulitis. REVIEW OF SYSTEMS: CONSTITUTIONAL: The patient denies weight loss or gain. The patient denies fevers or chills. HEENT: The patient denies ear or throat pain. The patient denies headache. CARDIOVASCULAR: The patient denies palpitations or chest pain. CHEST: The patient denies wheeze or shortness of breath. ABDOMEN: The patient complains of right-sided abdominal pain. The patient denies nausea, vomiting, diarrhea, or constipation. GENITOURINARY: The patient denies dysuria or increased frequency of urination. NEUROMUSCULAR: The patient denies seizures or generalized weakness. PAST MEDICAL HISTORY: The patient denies. PAST SURGICAL HISTORY: Significant for appendectomy. CURRENT MEDICATIONS: The patient denies. ALLERGIES: No known drug allergies. SOCIAL HISTORY: The patient is single. The patient denies tobacco or alcohol use. PHYSICAL EXAMINATION: VITAL SIGNS: Temperature 97.9, respirations 18, pulse 69, and blood pressure 106/56. GENERAL: The patient is a well-developed and well-nourished female, in no apparent distress. HEENT: Eyes, pupils are equal and responsive to light and accommodation. Extraocular movements are intact. NECK: Supple without lymphadenopathy. CHEST: Lungs are clear to auscultation bilaterally without wheezes or rales. CARDIOVASCULAR: Regular rhythm and rate. S1 and S2 are normal without murmurs, rubs, or gallops. ABDOMEN: Soft, nontender, and nondistended. Positive bowel sounds. No evidence of hepatosplenomegaly. Currently, no rebound or guarding noted. EXTREMITIES: Negative for clubbing, cyanosis, or edema. RECTAL/GENITAL: Not performed. NEUROLOGIC: Cranial nerves II through XII are grossly intact without focal deficits. Motor strength is 5/5 bilaterally. Deep tendon reflexes are 2+ plantar. LABORATORY STUDIES: WBC 10.7, hemoglobin 10.9, hematocrit 32.4, and platelets 300,000. Sodium 142, potassium 3.1, chloride 105, CO2 27, BUN 11, creatinine 0.8, and glucose 115. Liver function tests are within normal limits. A CT scan of the abdomen was reported as marked wall thickening on the cecum and terminal ileum consistent with enteritis. ASSESSMENT: This is a 33-year-old female. 1. Abdominal pain. 2. Enteritis. TREATMENT: Abdominal pain/enteritis. A Gastroenterology consultation with Dr. Andrew Pollock has been obtained. The patient may require colonoscopy. We will follow recommendations of Gastroenterology. The patient has been started empirically on Zosyn. Regis Golden M.D. DR: BLOSSOM JOB#: [id number] CC:
--- NOTE | 2018-09-26 21:55 | Discharge Summary ---
Discharge Summary Discharge Summary _ DATE OF ADMISSION: 09/23/2018 DATE OF DISCHARGE: 09/24/2018 DISCHARGED BY: Dr. Sanders REASON FOR ADMISSION: 33 years old female with no significant past medical history, presented to emergency department with chief complaint of a one day history of right-sided abdominal pain. Laboratory work-up revealed no leukocytosis, hemoglobin 10.9, hematocrit 32.4. Potassium 3.1. Stable renal parameters. Stable LFT and lipase. CT of the abdomen and pelvis revealed marked wall thickening of the cecum and the terminal ileum, consistent with enteritis. Urinalysis revealed no pyuria, but showed moderate bacteria. Urine test was negative. Patient subsequently was admitted for further evaluation and management. CONSULTANTS: pulmonary/critical care Dr. Salinas ID specialist Dr. Sevilla GI specialist Dr. Pollock [facility] COURSE: Patient admitted to medical surgical floor. Patient started on the IV hydration and empiric antibiotics. Potassium was replaced. Next day potassium 3.7. ID and GI specialist followed. Urine culture negative. Pain management was addressed. Symptomatic care provided. Patient slowly started on diet and was advanced as tolerated. Antiemetic were on board as needed. Oral hydration was encouraged. Per GI specialist, diverticulitis was unlikely and findings on the CT scan were most suggestive of enteritis. Patient was able to tolerate diet. No fever, no leukocytosis. Patient was on oral ciprofloxacin and Flagyl. ID specialist cleared for discharge patient on this regimen to complete the course. Strict return precautions were endorsed to patient. Patient clinically stabilized and was ready for discharge home. Due to rapid and unexpected improvement in patient condition, patient was discharged in 1 day. FINAL DIAGNOSES: Enteritis Abdominal pain DISCHARGE MEDICATIONS: See Medication Reconciliation list. DISCHARGE INSTRUCTIONS: Patient was discharged home . Follow up with primary care provider in one week. I have been assigned to dictate discharge summary for this account. I was not involved in the patient's management. Chitra Mehta NP Sep 26, 2018 21:55
== END 2018-09-24 18:17 | disposition home or self-care (01) | DRG 392 ==
LOC: EMR 17:25 → 3E 22:07 → EDBEDREQ 22:32 → 3E 09-24 01:42
DX: K52.9 Noninfective gastroenteritis and colitis, unspecified (principal); R10.9 Unspecified abdominal pain
CPT/HCPCS: 36415; 74177; 80053; 81003; 81025; 82150; 83690; 85025; 85730; 87086; 96361; 96365; 96367; 99285; J2405; J8499

== ENCOUNTER 2018-09-28 13:22 | Emergency (ER) | payer SELFPAY ==
[~2018-09-28] VITALS: Ht 160 cm; Wt 68.0 kg
[2018-09-28 13:30] VITALS: BP 120/77
--- NOTE | 2018-09-28 13:35 | NUR ---
ED Nurse Note: Patient walked into ED c/o blood in her stool since last night, patient reports the symptoms started after taking metronidazole and ciprofloxacin. patient visited [facility] on 09/23/18 due to right abd pain. patient is alert awake x4 ambulatory, breathing unlabored and even.
[2018-09-28] MEDS ORDERED: CIPRO500 MG PO (13:40)
[2018-09-28] MEDS ORDERED: METRONIDAZOLE500 MG ORAL (13:40)
[2018-09-28 13:54] VITALS: BP 120/77
--- NOTE | 2018-09-28 14:08 | NUR ---
ED Nurse Note: blood and urine sent to lab
[2018-09-28 14:17] LABS: BASOPHILS % (AUTO) 0.6 % (0.0-2.0); EOSINOPHILS % (AUTO) 4.6 % (0.0-3.0); HEMATOCRIT 35.9 % (37.0-47.0); HEMOGLOBIN 11.5 G/DL (12.0-16.0); MEAN CORPUSCULAR VOLUME 94 FL (80-99); MONOCYTES % (AUTO) 9.8 % (1.0-10.0); NEUTROPHILS % (AUTO) 70.9 % (45.0-75.0); PLATELET COUNT 330 K/UL (150-450); RED BLOOD COUNT 3.81 M/UL (4.20-5.40); RED CELL DISTRIBUTION WIDTH 11.5 % (11.6-14.8)
[2018-09-28 14:20] LABS: APPEARANCE,URINE CLEAR; BILIRUBIN, URINE NEGATIVE (NEGATIVE); COLOR,URINE AMBER; GLUCOSE, URINE (UA) NEGATIVE (NEGATIVE); KETONES,URINE NEGATIVE (NEGATIVE); LEUKOCYTE ESTERASE ,URINE 2+ (NEGATIVE); NITRITE,URINE NEGATIVE (NEGATIVE); PH,URINE 6.5 (4.5-8.0); PROTEIN,URINE NEGATIVE (NEGATIVE); UROBILINOGEN,URINE NORMAL MG/DL (0.0-1.0)
[2018-09-28 14:25] LABS: ANION GAP 6 mmol/L (5-15); BLOOD UREA NITROGEN 6 mg/dL (7-18); CALCIUM 9.3 MG/DL (8.5-10.1); CARBON DIOXIDE 29 MMOL/L (21-32); CHLORIDE 105 MMOL/L (98-107); CREATININE 0.7 MG/DL (0.55-1.30); POTASSIUM 3.2 MMOL/L (3.5-5.1); SODIUM 140 MMOL/L (136-145)
[2018-09-28 14:30] LABS: ALANINE AMINOTRANSFERASE 9 U/L (12-78); ALBUMIN 2.9 G/DL (3.4-5.0); ALBUMIN/GLOBULIN RATIO 0.7 (1.0-2.7); ALKALINE PHOSPHATASE 60 U/L (46-116); ASPARTATE AMINO TRANSFERASE 14 U/L (15-37); BILIRUBIN,TOTAL 0.2 MG/DL (0.2-1.0)
--- NOTE | 2018-09-28 14:55 | Emergency Room Report ---
History of Present Illness General Chief Complaint: General Complaint Source: Patient Present Illness HPI 33-year-old female with history of diverticulitis who was recently here last week and admitted for 1 day at [facility] here complaining of blood in her stool x2 days. Patient was discharged last Thursday with metronidazole and ciprofloxacin and dietary restrictions. Patient reports that she started taking the same day and started seeing blood in her stool yesterday and having diarrhea. Complains of nausea when taking the medication. Denies fever and chills, abdominal pain, chest pain, shortness of breath or palpitation. Denies urinary symptoms. Patient denies having active rectal bleeding and says that she has noticed some on the toilet paper. Denies fatigue and syncope. Patient does not live in [facility] and says that her primary care physician is an different [place]. Denies intake of alcohol and smoking. Allergies: Coded Allergies: No Known Allergies (Unverified , 09/23/18) Patient History Past Medical History: see triage record Past Surgical History: unable to obtain Pertinent Family History: none Last Menstrual Period: 09/20/18 Now: No Immunizations: UTD Reviewed Nursing Documentation: PMH: Agreed; PSxH: Agreed Nursing Documentation-PMH Past Medical History: No History, Except For Hx Cardiac Problems: No Hx Cancer: No Hx Gastrointestinal Problems: Yes - diverticulitis, appendectomy in 2008 Hx Neurological Problems: No Review of Systems All Other Systems: negative except mentioned in HPI Physical Exam Vital Signs Date Time Temp Pulse Resp B/P (MAP) Pulse Ox O2 Delivery O2 Flow Rate FiO2 09/28/18 13:30 98.1 69 17 120/77 (91) 100 Room Air Sp02 EP Interpretation: reviewed, normal General Appearance: normal inspection, well appearing, no apparent distress, alert, GCS 15 Head: normocephalic, atraumatic Eyes: bilateral eye normal inspection, bilateral eye PERRL ENT: normal ENT inspection, hearing grossly normal, normal pharynx Neck: normal inspection, full range of motion, supple Respiratory: normal inspection, chest non-tender, no rhonchi, no wheezing Cardiovascular #1: normal inspection, regular rate, rhythm, no edema, no murmur , normal capillary refill Gastrointestinal: normal inspection, normal bowel sounds, non tender, soft, no guarding, no hernia, no pulsatile mass, no rebound Rectal: deferred Genitourinary: no CVA tenderness Musculoskeletal: normal inspection, back normal Neurologic: normal inspection, alert, oriented x3 Psychiatric: normal inspection, judgement/insight normal Skin: no rash, normal turgor Lymphatic: normal inspection, no adenopathy Medical Decision Making PA Attestation All my diagnosis and treatment plans were reviewed ad discussed with my supervising physician Dr. Chery Diagnostic Impression: Primary Impression: Diverticulitis ER Course 33-year-old female with history of diverticulitis who was recently here last week and admitted for 1 day at [facility] here complaining of blood in her stool x2 days. Patient was discharged last Thursday with metronidazole and ciprofloxacin and dietary restrictions. Patient reports that she started taking the same day and started seeing blood in her stool yesterday and having diarrhea. Complains of nausea when taking the medication. Denies fever and chills, abdominal pain, chest pain, shortness of breath or palpitation. Denies urinary symptoms. Patient denies having active rectal bleeding and says that she has noticed some on the toilet paper. Denies fatigue and syncope. Patient does not live in [facility] and says that her primary care physician is [place]. Denies intake of alcohol and smoking. Ddx considered but are not limited to: appendicitis, cholecystis, gastritis, gastroenteritis, UTI, pyonephritis, SBO, diverticulitis, influenza with GI manifestation, complicated diverticulitis, uncomplicated diverticulitis Vital signs: are WNL, pt. is afebrile H&PE are most consistent with: Uncomplicated diverticulitis ORDERS: See, CMP, UA, ESR and CRP, Zofran ED INTERVENTIONS: NS bolus DISCHARGE: At this time pt. is stable for d/c to home. Will provide printed patient care instructions, and any necessary prescriptions. Care plan and follow up instructions have been discussed with the patient prior to discharge. At this time no further assessment is needed in the emergency room patient to follow-up with her primary care provider and be referred to volunteer services manager if fever and chills and worsening bleeding and acute bleeding from the rectum return to the emergency room advised the patient on dietary restrictions and intake of her medication I explained to the patient that the medication can cause her nauseated in order to prevent that she can take Zofran prior to intake of her antibiotics. However the antibiotics do not cause more bleeding because they were given for the condition that she has that causes rectal bleeding. Last Vital Signs Date Time Temp Pulse Resp B/P (MAP) Pulse Ox O2 Delivery O2 Flow Rate FiO2 09/28/18 13:51 69 17 Room Air 09/28/18 13:30 98.1 120/77 100 Disposition: HOME, SELF-CARE Condition: Stable Scripts Ondansetron (Zofran) 4 Mg Tablet 4 MG ORAL Q6H PRN for Nausea & Vomiting, #10 TAB Prov: Yamilex Cesar 09/28/18 Patient Instructions: Diverticulitis, [id number] Additional Instructions: Take medication as directed follow-up with your primary care provider to be sent to volunteer services manager if fever and chills and worsening symptoms return to the emergency room at this time no changes have noted in your blood work and urine no distress. No further work-up is needed in the emergency room at this time Yamilex Cesar Sep 28, 2018 14:55
[2018-09-28] MEDS ORDERED: ZOFRAN4 M1 ORAL (14:56)
[2018-09-28 15:03] VITALS: BP 120/77
--- NOTE | 2018-09-28 15:03 | NUR ---
ER DISCHARGE NOTE: Patient is cleared to be discharged per ALFONSO ZELAYA, pt is aox4, on room air, with stable vital signs. pt was given dc and prescription instructions, pt was able to verbalize understanding, pt id band and iv site removed without complications. pt is able to ambulate with steady gait. pt took all belongings.
== END 2018-09-28 15:03 | disposition home or self-care (01) ==
LOC: EMR 14:00
DX: K57.92 Diverticulitis of intestine, part unspecified, without perforation or abscess without bleeding (principal); Z90.89 Acquired absence of other organs
CPT/HCPCS: 36415; 80053; 81001; 85025; 85651; 86140; 96360; 99284